=== PATIENT | female | born 1960 | race Caucasian/White ===

== ENCOUNTER 2021-11-16 10:41 | Outpatient (RCR) | payer MEDICAID, OTHER | END 2021-11-19 | LOC: ONC 10:41 | PROVIDERS: ATTEND Radiology Radiation Oncology | DX: Z51.0 Encounter for antineoplastic radiation therapy (principal); C34.92 Malignant neoplasm of unspecified part of left bronchus or lung; C79.31 Secondary malignant neoplasm of brain; I10 Essential (primary) hypertension; I82.403 Acute embolism and thrombosis of unspecified deep veins of lower extremity, bilateral; F17.210 Nicotine dependence, cigarettes, uncomplicated | CPT/HCPCS: 77300; 77301; 77338; G0463; 77373; 77470; 99204 ==

== ENCOUNTER 2021-11-23 09:23 | Outpatient (RCR) | payer MEDICAID | END 2021-12-19 | disposition home or self-care (01) | LOC: ONC 09:23 | PROVIDERS: ATTEND Radiology Radiation Oncology | DX: C34.92 Malignant neoplasm of unspecified part of left bronchus or lung (principal); C79.31 Secondary malignant neoplasm of brain; I10 Essential (primary) hypertension; I82.403 Acute embolism and thrombosis of unspecified deep veins of lower extremity, bilateral; F17.210 Nicotine dependence, cigarettes, uncomplicated | CPT/HCPCS: 77336 ==